=== PATIENT | female | born 1930 | race Caucasian/White ===

== ENCOUNTER 2016-11-16 09:51 | Inpatient (IN) | payer MEDICARE, OTHER ==
--- NOTE | ~2016-11-16 | CO ---
Unit #: [id number] #: [id number] Patient: PAM ALBERT [id number] [facility] [address] [facility]. [place], [place] [address] [id number] I MR#: [id number] NAME: PAM ALBERT ROOM: 333 Age: 85 Sex: F Admission Date: 11/16/2016 : 1930 Attending Physician: Karine Dias M.D. Primary Care Physician: No Primary Care Physician Consultation Date: 11/16/2016 CONSULTATION REPORT REASON FOR CONSULTATION Congestive heart failure. HISTORY OF PRESENT ILLNESS The patient is an 85-year-old female who is followed by Dr. Cortes of [facility]. The patient was recently at [facility] for one week and was treated for bronchitis, flu and diastolic congestive heart failure. At that time, she did have a 2D echocardiogram which did show moderate aortic stenosis with a mean gradient of 24 mmHg. The patient was discharged to [facility] rehab here at [facility]. While at [facility], it was noted that the patient seemed to be coming more short of breath. She was also complaining of productive yellow cough. Family reports that she did have a low grade fever. The patient denies any nausea, vomiting, chills or chest pain. She does endorse shortness of air. In the emergency department, the patient was treated with IV Lasix. She had a chest x-ray done which showed moderately enlarged cardiac silhouette consistent with cardiomegaly or pericardial fluid. The diffuse bilateral interstitial change could be acute or chronic. If acute, the appearance favors edema over pneumonia. Her EKG shows a paced rhythm. Cardiology was consulted for CHF. PAST MEDICAL HISTORY 1. 2D echocardiogram at [facility] shows an ejection fraction of 57%, moderate aortic stenosis with a mean gradient of 24 mmHg. 2. Persistent atrial fibrillation. 3. Status post [employer] permanent pacemaker approximately two years ago. 4. Hypertension. 5. Hyperlipidemia. 6. Chronic diastolic congestive heart failure. 7. Hypothyroidism. 8. Left breast cancer. PAST SURGICAL HISTORY 1. Hernia repair. 2. Permanent pacemaker placement. 3. Left breast cancer with lumpectomy. ALLERGIES No known allergies. Unit #: [id number] #: [id number] Patient: PAM ALBERT HOME MEDICATIONS 1. Lasix 40 mg p.o. daily. 2. Vitamin D 1000 units p.o. daily. 3. Ipratropium albuterol 3 mL inhalation four times daily. 4. Guaifenesin 600 mg p.o. b.i.d. 5. Xarelto 20 mg p.o. daily. 6. Bentyl 20 mg p.o. q.6 hours. 7. Synthroid 0.1 mg p.o. daily. 8. Hydralazine 25 mg p.o. every eight hours. 9. Losartan 50 mg p.o. daily. 10. Prednisone taper. 11. Senna, one tab p.o. daily. 12. Tylenol extra strength 500 mg p.o. every six hours. 13. Xanax 0.25 mg p.o. b.i.d. p.r.n. anxiety. FAMILY HISTORY Medically noncontributory. SOCIAL HISTORY The patient denies tobacco, alcohol or illicit drug abuse. She lives with her son and ambulates with a walker. REVIEW OF SYSTEMS A ten point review of systems has been done and is negative except as indicated in the HPI. PHYSICAL EXAMINATION GENERAL: The patient is awake and alert. VITAL SIGNS: Temperature 98, heart rate 64, respirations 27, blood pressure 156/62. She is oxygenating 94% on 2 L nasal cannula. HEENT: Head is atraumatic, normocephalic. Pupils equal, round and reactive. Extraocular movements are intact. No discharge from ears or nose. NECK: Supple. Trachea is midline. Positive carotid upstrokes. CHEST: Lungs diminished with crackles in the bases. CARDIOVASCULAR: S1, S2. She has a 3/6 systolic murmur. ABDOMEN: Soft, nontender, nondistended. Bowel sounds are positive in all four quadrants. SKIN: Appears to be warm, dry and intact. EXTREMITIES: No clubbing or cyanosis. She does have edema. NEUROLOGIC: She is alert and oriented x3. She is pleasant and conversant with no focal defects. DIAGNOSTIC STUDIES IMAGING: Chest x-ray shows findings consistent with cardiomegaly and edema. LABORATORY: BNP 239, sodium 133, potassium 3.6, chloride 88, CO2 34, BUN 30, creatinine 0.7, glucose 129, white blood cells 27.8, hemoglobin 13.1, hematocrit 41.1, platelets 477. ASSESSMENT 1. Acute on chronic diastolic congestive heart failure with an left ventricular ejection fraction of 57%. 2. Moderate to severe aortic stenosis with a mean gradient of 24 mmHg. 3. Persistent atrial fibrillation, status post permanent pacemaker on anticoagulation. Unit #: [id number] #: [id number] Patient: PAM ALBERT 4. Hypertension. 5. Acute hypoxic respiratory failure. 6. Recent flu and bronchitis. 7. Deconditioning. 8. Leukocytosis. 9. Possible infectious versus steroids. PLAN Will stop the patient's Lasix and give her Bumex 1 mg IV every six hours. Will ask the nurses to do strict I's and O's with a 1800 mL fluid restriction. Will ask nurses to do daily weights on the patient. Will do a bedside swallow evaluation to rule out aspiration. Will check a urinalysis with culture and sensitivity. Will check a CBC, BMP, mag, TSH, lipid panel in the morning. Will check cardiac enzymes and troponin q.6 hours x3 and will check an EKG in the a.m. I will ask Dr. Moran to evaluate the patient to see if she is a possible TAVR candidate. Dictated by... Neva Cox A.P.R.N. for Froilan Moran M.D. AM/haley TD: 11/17/2016 10:20 JOB #: [id number] CONSULTATION REPORT Page 1 of 1 X Neva Cox TOOL GRINDING MACHINE OPERATOR X CONSULTATION REPORT
--- NOTE | ~2016-11-16 | CT16 ---
[facility] A Service of [facility] RADIOLOGY TEXT RESULTS PATIENT: PAM ALBERT LOCATION: [facility] 333-01 : 29 UNIT #: [id number] AGE: [address]: Karien Dias MD SEX: F ORDER DR: [id number] [facility] [address]. [place], [place] [address] [id number] I MR#: [id number] Acc #: [id number] NAME: PAM ALBERT : 1930 SEX: F STUDY DATE/TIME: 11/17/2016 15:28 UNIT: A PCU ROOM: 333 STUDY DESCRIPTION: CT Angio Chest for PE Attending Physician: Karine iDas M.D. Ordering Physician: Froilan Moran M.D. Primary Care Physician: No Primary Care Physician MEDICAL IMAGING REPORT This report is preliminary unless electronic signature is present EXAM Chest CT PE protocol with contrast 11/17/2016 INDICATIONS 85-year-old female with shortness of air and dyspnea 2 days acute edema. History of congestive heart failure. Aortic stenosis, atrial fibrillation, history of breast cancer. TECHNIQUE Contrast enhanced CT scan of the chest PE protocol was performed with 3-D reformats. This CT exam was performed with one or more of the following radiation dose reduction techniques: automatic exposure control, adjustment of mA and/or kV according to patient size, and iterative reconstruction. COMPARISON STUDIES There are no comparisons. FINDINGS CT CHEST: IV bolus adequate. There is significant motion degradation decreasing sensitivity of the study for detection of pulmonary emboli. Aorta demonstrates moderately advanced atherosclerotic change. The thoracic aorta is ectatic. No distinct aneurysm or dissection. There is no evidence of acute pulmonary embolus in the central pulmonary arterial tree. Portions of the distal first and proximal second-order branches particularly in the upper lobes are not well visualized or assessed due to motion degradation and the presence or absence of small pulmonary emboli cannot be ascertained. Included thyroid unremarkable. There are mildly prominent superior mediastinal lymph nodes present likely reactive but should be correlated clinically. Index node in the right paratracheal station measures 9 mm [facility] A Service of [facility] RADIOLOGY TEXT RESULTS PATIENT: PAM ALBERT LOCATION: [facility] 333-01 : 29 UNIT #: [id number] AGE: [address]: Karine Dias MD SEX: F ORDER DR: rich lynn. Similar sized nodes are also present at the remainder of the anterior mediastinum and extend into the middle mediastinum. There is no axillary adenopathy. No pericardial effusion. The heart is enlarged. Included upper abdomen demonstrates no acute finding. There is mild lobulation of the liver margins suggestive of mild cirrhotic change. Correlate with laboratory data. The lungs are emphysematous. There is dense pneumonia in the lower lobes right greater than left. There are patchy tree-in-bud infiltrates in the lungs bilaterally with an upper lobe predominance on the right, but there is also less pronounced involvement of the right middle lobe and lingula. There are noncalcified parenchymal nodules. Index nodule in the upper lobe on the right measures about 6 mm. Second index nodule in the upper lobe on the right measures about 7 mm. Other similar sized nodules are present in the right lung. These are probably inflammatory or infectious but imaging followup to resolution after appropriate therapy is recommended. There is no pneumothorax. There are background changes of subpleural scarring and fibrosis. Osseous structures demonstrate thoracic kyphosis and spondylosis. No suspicious bone lesion. IMPRESSION 1. No evidence of acute pulmonary embolus in the central pulmonary dural tree. 2. No aortic aneurysm or dissection. 3. Cardiomegaly and atherosclerotic change of the aorta with aortic ectasia but no distinct aneurysm. 4. Probable reactive lymph nodes in the mediastinum measuring a centimeter or less. This should be correlated clinically. 5. There is dense pneumonia in the lower lobes bilaterally right greater than left. Additional tree-in-bud infiltrates and probable inflammatory or infectious nodules are present bilaterally with a mid and upper lung zone distribution also most characteristic of inflammatory or infectious process overall and multifocal pneumonia. There is no significant effusion. Imaging followup to resolution is recommended after appropriate therapy as described above. 6. Included upper abdomen demonstrates no acute finding. Morphology of the liver suggests early stigmata of cirrhosis. Dictated by... Malcolm Almonte M.D. THIS IS AN ELECTRONICALLY VERIFIED REPORT Malcolm Almonte M.D. at 11/18/2016 10:31 PM Nadeem TD: 11/17/2016 17:37 JOB #: [id number] MEDICAL IMAGING REPORT [facility]. [facility] A Service of [facility] RADIOLOGY TEXT RESULTS PATIENT: PAM ALBERT LOCATION: [facility] 333-01 : 29 UNIT #: [id number] AGE: [address]: Karine Dias MD SEX: F ORDER DR: Page 1 of 1 COPY
--- NOTE | ~2016-11-16 | EKG ---
PATIENT: PAM ALBERT UNIT #: [id number] Ventricular Rate: 60 BPM Atrial Rate: 69 BPM QRS Duration: 178 ms Q-T Interval: 492 ms QTC Calculation(Bezet): 492 ms Calculated R Wadley: -90 degrees Calculated T Wadley: 84 degrees Diagnosis Line: Sinus rhythm with complete heart block and Diagnosis Line: Ventricular-paced rhythm Diagnosis Line: Abnormal ECG Diagnosis Line: No previous ECGs available Diagnosis Line: Confirmed by TASHI BEAL MD ([id number]) on 11/17/2016 Diagnosis Line: 9:18:50 AM INTERPRETING MD: LIAN PRYOR
--- NOTE | ~2016-11-16 | DS ---
Unit #: [id number] #: [id number] Patient: PAM ALBERT [id number] [place], [place] [address] [id number] I MR#: [id number] NAME: PAM ALBERT ROOM: 333 Age: 85 Sex: F Admission Date: 11/16/2016 : 1930 Discharge Date: 11/21/2016 Attending Physician: Karine Dias M.D. DISCHARGE SUMMARY SUMMARY DATE OF 11/21/2016. PRINCIPAL DIAGNOSES 1. Sepsis secondary to bibasilar aspiration pneumonia. 2. Acute hypoxic respiratory failure secondary to #1. 3. Aortic stenosis, moderate to severe. 4. Leukemoid reaction. 5. Chronic atrial fibrillation. 6. Acute on chronic diastolic congestive heart failure with ejection fraction of 55%. 7. Hypokalemia. 8. History of hypertension. 9. Hypothyroidism. CONSULTANTS Dr. Moran, Cardiology; Dr. Thorpe, Pulmonary. PROCEDURES 1. Two dimensional echocardiogram on 11/16/2016 with ejection fraction of 55% to 60%, grade 2 diastolic dysfunction noted, reduced right ventricular function. Aortic valve area of 0.86 cm2 with maximum gradient 45 mmHg, mean gradient 21, moderate tricuspid regurgitation. 2. CT angiogram of the chest on 11/17/2016, which was negative for pulmonary embolism, cardiomegaly, and atherosclerotic change of the aorta noted, dense pneumonia in lower lobes bilaterally right greater than left, tree-in-bud infiltrates, inflammatory infectious nodules bilaterally. Morphology of liver suggestive cirrhosis. CLINICAL HISTORY AND HOSPITAL COURSE Ms. Albert was a very nice 85-year-old female, sent from rehab due to increasing shortness of breath. Please refer to H and P for further details. Chest x-ray in the emergency department revealed questionable pulmonary edema versus pneumonia. The patient has known moderate to severe aortic stenosis. She was subsequently admitted. In regard to the patient's aortic stenosis, Dr. Moran was consulted. The patient was placed on aggressive diuresis and 2-dimensional echocardiogram was done and results as noted. There was initially discussion about transfer to [facility] for transcatheter aortic valve replacement, but ultimately this was not done given findings of significant pneumonia. Unit #: [id number] #: [id number] Patient: PAM ALBERT Diuresis was held. Dr. Thorpe was consulted given the patient's respiratory failure. Unfortunately, she continued to have progressive hypoxia and required BiPAP therapy. CT scan of the chest was done, revealing significant pneumonia. Interestingly enough, the patient's procalcitonin was significantly low at 0.05. She had been placed on antibiotics for presumed healthcare associated pneumonia, but this appeared to be more aspiration. Swallow evaluation done the prior to the CT scan did confirm aspiration. Goals of care were discussed with the patient namely PEG versus comfort measures. The patient opted to be comfort measures. She was kept comfortable and subsequently passed on 11/21/2016 at 11:31 in the morning. Dictated by... Karine Dias M.D. JAYSHREE/maribel TD: 11/22/2016 01:30 JOB #: [id number] DISCHARGE SUMMARY Page 1 of 1 X Karine Dias MD X DISCHARGE SUMMARY
--- NOTE | ~2016-11-16 | CR72 ---
[facility] A Service of [facility] RADIOLOGY TEXT RESULTS PATIENT: PAM ALBERT LOCATION: [facility] 333-01 : 29 UNIT #: [id number] AGE: [address]: Karine Dias MD SEX: F ORDER DR: [id number] [facility] [address] [place], [place] [address] [id number] E MR#: [id number] Acc #: [id number] NAME: PAM ALBERT : 1930 SEX: F STUDY DATE/TIME: 11/16/2016 09:33 UNIT: [facility] ROOM: STUDY DESCRIPTION: CR Chest Single View Portable Attending Physician: Geovanni Masters M.D. Ordering Physician: Geovanni Masters M.D. Primary Care Physician: No Primary Care Physician MEDICAL IMAGING REPORT This report is preliminary unless electronic signature is present EXAM Chest portable 11/16/2016 09:33 hours HISTORY An 86-year-old woman with shortness of air today, cough. History of atrial fibrillation and bronchitis with flu. COMPARISON None. FINDINGS Upright portable chest film demonstrates moderate enlargement of the cardiac silhouette consistent with cardiomegaly and/or pericardial fluid. There is a left subclavian single lead pacer with tip over the right ventricular apex. There is pulmonary venous distension and bilateral interstitial change diffusely in both lungs. No effusions seen. IMPRESSION There are no prior films for comparison. There is a moderately enlarged cardiac silhouette consistent with cardiomegaly or pericardial fluid. There is a single lead pacer device with tip over the right ventricular apex. There is diffuse bilateral interstitial change which could be acute or chronic. If acute, the appearance favors edema over pneumonia. There is no definite effusion. Dictated by... Patti Adan M.D. THIS IS AN ELECTRONICALLY VERIFIED REPORT Patti Adan M.D. at 11/17/2016 9:21 AM [facility] A Service of [facility] RADIOLOGY TEXT RESULTS PATIENT: PAM ALBERT LOCATION: [facility] 333-01 : 29 UNIT #: [id number] AGE: [address]: Karine Dias MD SEX: F ORDER DR: PAT/bridger TD: 11/16/2016 14:57 JOB #: [id number] MEDICAL IMAGING REPORT Page 1 of 1 COPY
--- NOTE | ~2016-11-16 | CO ---
Unit #: [id number] #: [id number] Patient: PAM ALBERT [id number] [facility] [address]. [place], [place] [address] [id number] I MR#: [id number] NAME: PAM ALBERT ROOM: 333 Age: 85 Sex: F Admission Date: 11/16/2016 : 1930 Attending Physician: Karine Dias M.D. Primary Care Physician: No Primary Care Physician Requesting Physician: Froilan Moran M.D. CONSULTATION REPORT REASON FOR CONSULTATION Respiratory failure and possible sleep apnea. HISTORY OF PRESENT ILLNESS Ms. Albert is an 85-year-old female recently discharged from [facility] admitted there 11/06/2016, discharged 11/12/2016, and sent to [facility]. She was at [facility] and apparently a RAPID was called and, because of that, she was sent possibly through the ER and then admitted to third floor of [facility]. I saw her in the shabazz actually when she was waiting for a PE protocol that had been ordered by another physician and she complains of some increased shortness of air, did not give me the idea that she was tiring out but she really did not know how long she could hold up. She did note some fever and chills previously, not necessarily now. She never smoked. She denies any history of ongoing lung disease such as asthma or emphysema. She was at [facility] and had positive influenza A. However, they did a CAT scan there that was reported as negative, although I do not know if I actually have a copy of that. The report of negative basically comes from the discharge summary. She does admit to some leg swelling. She does have a history of aortic stenosis which has been termed as moderate previously. It is notable that when she left I think they had planned on a tapering dose of prednisone but I think she is off that now. PAST MEDICAL HISTORY Otherwise significant for her aortic stenosis by echo that revealed LV function normal at 57%. She had right ventricular cavity moderately dilated, left atrial cavity severely dilated, right atrial cavity severely dilated, moderate aortic stenosis, peak gradient of 44, mean 24, mild to moderate mitral valve regurgitation, calculated RVST was 57. That is consistent with some pulmonary hypertension. Other past medical history significant for atrial fibrillation, history of breast cancer and status post left lumpectomy, chronic leg edema, diverticulitis, hypertension, hypothyroidism, right hip pain. PAST SURGICAL HISTORY Pacemaker implant, hernia repair, cholecystectomy, tubal ligation, left lumpectomy. SOCIAL HISTORY She never smoked. FAMILY HISTORY According to the patient is negative for lung disease. Unit #: [id number] #: [id number] Patient: PAM ALBERT ALLERGIES No known drug allergies. MEDICATIONS ON ADMISSION 1. Bentyl 20 mg p.o. q.6. 2. Synthroid 0.1 mg daily. 3. Hydralazine 25 mg p.o. q.8. 4. Losartan 50 mg p.o. daily. 5. Prednisone on a tapering dose. 6. Senna daily. 7. Tylenol extra strength. 8. Xanax 0.25 mg b.i.d. 9. Lasix 40 mg p.o. daily. 10. Vitamin D3 1,000 units daily. 11. DuoNeb q.i.d. 12. Guaifenesin 600 mg b.i.d. 13. Xarelto 20 mg p.o. daily. SYSTEM REVIEW She is denying nausea, vomiting, diarrhea. She did have leg swelling. She does admit to choking on food. All other systems are negative except as mentioned. PHYSICAL EXAMINATION GENERAL APPEARANCE: She presents as an older female, currently in no acute distress. VITAL SIGNS: Temperature 98.1. Pulse 62. Respirations 23. Blood pressure 153/59. Saturation is 99%. Now, when that was taking, she may have been on BiPAP but, when I saw her, she was on four liters nasal cannula. NECK: Without adenopathy. LUNGS: Her breathing is mildly labored. She has diffuse bilateral inspiratory and expiratory wheezes and rhonchi. HEART: Irregular. ABDOMEN: Soft and bowel sounds are present. EXTREMITIES: Trace to 1+ edema. NEUROLOGIC: She is awake and alert. DIAGNOSTIC STUDIES LABORATORY: Her WBC count here was 30,000, hemoglobin and hematocrit 12.5 and 39, platelets 480,000. Her serum chemistry is significant for a BUN of 38 and a creatinine of 0.7, bicarb 32, albumin 3. Lactic done yesterday was 1.2. I asked for a blood gas last night on BiPAP 08/02. pH was 7.36, pCO2 63, pO2 134. That was repeated this morning and her pH was 7.42, pCO2 down to 56, pO2 127. IMAGING: Her chest x-ray to my exam revealed bilateral diffuse infiltrates. She was sent down for PE protocol CAT scan and they told me they were uploading images but I have not found them yet. IMPRESSION 1. Acute on chronic hypoxemic and hypercapnic respiratory failure. 2. Diffuse bilateral infiltrates. This is congestive heart failure versus pneumonia or very possibly both. 3. Recent flu A infection. I cannot tell whether she received Tamiflu at [facility] but I assume that she did. 4. Aortic stenosis at least moderate. 5. Pulmonary hypertension probably (1) because of left-sided Unit #: [id number] #: [id number] Patient: ROOSEVELT,PAM heart disease. PLAN She has got an elevated WBC count and bilateral diffuse infiltrates but her BNP, despite those bilateral diffuse infiltrates, is really only 239. Frankly, I do not think that is impressive. I would have concern for bilateral pneumonia or pneumonitis. It is certainly possible that she has influenza pneumonitis but that was a while ago and she left the hospital on the . I think we are obligated to treat this at least initially as a pneumonia because I would expect that if this were all because of her aortic stenosis causing a pulmonary edema, that her BNP should be higher, especially because of some pulmonary hypertension which, all by itself, can elevate the BNP. Therefore, I think we have to treat at least a little component of a noncardiogenic edema. I will go ahead and start cefepime. We could give a dose of vancomycin but I have a little concern because of the (2) and because of keeping her on the dry side that we could hurt her kidneys. I would like a procalcitonin level. I think her outlook is guarded. Thank you very much for allowing me to participate in the care of this patient. Dictated by... Yimi Thorpe M.D. Johnie TD: 11/18/2016 07:10 JOB #: [id number] CONSULTATION REPORT Page 1 of 1 X Yimi Thorpe MD CONSULTATION REPORT
--- NOTE | ~2016-11-16 | EKG ---
PATIENT: PAM ALBERT UNIT #: [id number] Ventricular Rate: 60 BPM Atrial Rate: 58 BPM QRS Duration: 174 ms Q-T Interval: 484 ms QTC Calculation(Bezet): 484 ms Calculated R Manti: -86 degrees Calculated T Manti: 94 degrees Diagnosis Line: Wide QRS rhythm Diagnosis Line: Left axis deviation Diagnosis Line: Right bundle branch block with repolarization Diagnosis Line: abnormality Diagnosis Line: Left ventricular hypertrophy with repolarization Diagnosis Line: abnormality Diagnosis Line: Inferior infarct , age undetermined Diagnosis Line: Anterior infarct , age undetermined Diagnosis Line: Abnormal ECG Diagnosis Line: When compared with ECG of 16-NOV-2016 09:22, Diagnosis Line: (unconfirmed) Diagnosis Line: Wide QRS rhythm has replaced Electronic Diagnosis Line: ventricular pacemaker Diagnosis Line: Confirmed by TASHI BEAL MD ([id number]) on 11/18/2016 Diagnosis Line: 9:34:54 AM INTERPRETING MD: LIAN PRYOR
--- NOTE | ~2016-11-16 | A ---
[facility] Nutrition Therapy DATE: 11/18/16 Patient: PAM ALBERT Physician: BROWN Address: [address] Room/Bed: [address] [place] [address], Zip: [place] [address] Admit Date: 11/16/16 Date of : 29 Height: 5 5 Weight: 143 65 NUTRITIONAL ASSESSMENT: REASON: CHAPERON request 85 y/o female admitted for acute edema, SOB PMH: CHF, atrial fibrillation, aortic stenosis, breast cancer, chronic edema, diverticulitis, HTN, hypothyroidism, EF of 57% Anthropometrics: Ht: 5'5" Wt: Labs: K+ 3.3, Cl- 98, Gluc 165, BUN 42 Meds: Solu-medrol, NaCl, Vitamin D I/O & Bowel function: 1200/1801, last BM 11/16 Skin Integrity: bruise (arms), red (buttock) Edema: BLE 2+ Assessment: Chart reviewed, events noted. CHAPERON requested that RD see the pt due to poor PO intake. Per CHAPERON note in chart from today, the pt's respiratory status is declining and CHAPERON recommends that the pt remain NPO. MD has since spoken with the pt's son and the pt regarding PEG vs. eating with comfort measures. Per MD note, the pt decided on eating with comfort measures. Pt has been ordered a regular diet for gratification and BiPAP has been discontinued. Nutrition intervention is not appropiate at this time. Please consult RD for any further nutritional needs. Consult RD if needed. Respectfully, Astrid Morrow, NANCI, LD [employer] [facility] [employer] cc: client file
--- NOTE | ~2016-11-16 | HP ---
Unit #: [id number] #: [id number] Patient: PAM ALBERT [id number] [place], [place] [address] [id number] MR#: [id number] NAME: PAM ALBERT ROOM: 333 Age: 85 Sex: F Admission Date: 11/16/2016 : 1930 Attending Physician: Nikki Ferrera M.D. HISTORY AND PHYSICAL CHIEF COMPLAINT Shortness of breath. HISTORY OF PRESENT ILLNESS The patient is an 85-year-old female brought to the emergency room after the MET team rapid response at [facility] on the second floor with respiratory distress. The patient was discharged from [facility] on November 12 for cardiac rehab following a viral bronchitis, chronic diastolic CHF, and moderate aortic stenosis. The patient was on the floor and was having shortness of breath gradually worsening to the point that they had to call the rapid response. The patient was found to be on two liters and her breathing was up to 92%. The patient is feeling uncomfortable. She denies any chest pain. The patient has a history of atrial fibrillation and anticoagulated with Xarelto. The patient had an echocardiogram at [facility] on November 07 that showed an EF of 57%, moderately dilated ventricles, and moderate aortic stenosis. There had been some discrepancy on aortic stenosis between the gradients and a calculated valve area with the valve area suggesting more severe stenosis. However, her mean gradient was 24 mmHg on echocardiogram consistent with a prior (1) moderate range. The patient was discharged to [facility] rehab on a tapering dose of steroids and oral diuretics. The patient was found to be in acute pulmonary edema in the emergency room and is being admitted for the above reasons. PAST MEDICAL HISTORY 1. Atrial fibrillation. 2. Aortic stenosis. 3. Breast cancer, status post lumpectomy. 4. Chronic edema. 5. Diverticulitis of the colon. 6. Hypertension. 7. Hypothyroidism. PAST SURGICAL HISTORY 1. Pacemaker implantation. 2. Hernia repair. 3. Cholecystectomy. 4. Tubal ligation. SOCIAL HISTORY She is . No history of smoking cigarettes, drinking alcohol, or any illicit drug abuse. FAMILY HISTORY Unit #: [id number] #: [id number] Patient: PAM ALBERT Mother with diabetes and father with asthma. HOME MEDICATIONS 1. Bentyl. 2. Synthroid. 3. Hydralazine. 4. Losartan. 5. Prednisone tapering dose. 6. Furosemide. 7. Vitamin. 8. DuoNebs. 9. Guaifenesin. 10. Xarelto. 11. Senna. 12. Tylenol. 13. Alprazolam. ALLERGIES No known drug allergies. REVIEW OF SYSTEMS A 14-point review of systems was performed and only pertinent positive findings are described above. The remaining are negative. PHYSICAL EXAMINATION GENERAL: Patient is lying in bed not in acute distress. VITAL SIGNS: Temperature 97.8, pulse 60, respiratory rate 20, blood pressure 172/52, and saturating 95% on five liters of nasal cannula. HEENT: Head atraumatic, normocephalic. Pupils equal, round, and reactive to light and accommodation. Extraocular movements are intact. Dry mucous membranes. NECK: Supple. No JVD. LUNGS: Decreased air entry at the bases. Positive for rales. HEART: Irregular rate and rhythm. Positive for murmur. ABDOMEN: Soft. Positive bowel sounds. No abdominal tenderness. EXTREMITIES: With +1 pedal edema. No cyanosis, no clubbing. NEUROLOGIC: Alert, awake, and oriented. No gross focal motor deficit. DIAGNOSTIC STUDIES LABORATORY: Glucose 129, BUN 30, creatinine 0.7, sodium 133, potassium 3.6, chloride 88, bicarb 34, calcium 9.9, albumin 3, AST 24, ALT 31, and alkaline phosphatase 61. BNP 239. Lactic acid is 1.2. INR is 1.1. Troponin is less than 0.05. WBC 27.8, hemoglobin 13.1, hematocrit 41.1, platelets 477,000, and neutrophils 89.5%. IMAGING: Chest x-ray shows cardiomegaly with pulmonary edema. CARDIOLOGY: EKG shows paced rhythm at a rate of 60 beats per minute. ASSESSMENT 1. Pulmonary edema. 2. Acute on chronic diastolic congestive heart failure. 3. Respiratory distress. 4. Moderate aortic stenosis. PLAN Admit the patient to inpatient with telemetry. Continue with IV diuretics with Lasix 40 mg IV b.i.d. Patient will have strict I/Os with a Bae Unit #: [id number] #: [id number] Patient: PAM ALBERT catheter. Repeat the echocardiogram and obtain the old records. Will have Cardiology evaluation for the CHF, pulmonary edema, and aortic stenosis. Repeat the labs again in the morning. Further recommendations will follow. Dictated by Veronique Coronado TD: 11/16/2016 19:07 JOB #: [id number] HISTORY AND PHYSICAL Page 1 of 1 X X HISTORY AND PHYSICAL
[2016-11-16 09:57] LABS: POC - CKMB 3.2 ng/mL (0.0-7.9); POC - TROPONIN <0.05 ng/mL (<=0.05)
[2016-11-16 10:04] LABS: BASOPHIL# 0.1 X10e3 (0-0.3); BASOPHIL% 0.4 % (0-2.5); DIFF IND YES; HEMATOCRIT 41.1 % (35.0-45.0); HEMOGLOBIN 13.1 gm/dL (12.0-16.0); LYMPHOCYTE# 0.3 X10e3 (1.0-3.5); LYMPHOCYTE% 0.9 % (17.0-45.0); MEAN CELL VOLUME 87.1 FL (83-96); MEAN CORPUSCULAR HEMOGLOBIN 27.8 PG (28-34); MEAN CORPUSCULAR HGB CONC 31.9 g/dL (30-36); MONOCYTE# 2.6 X10e3 (0-1.0); MONOCYTE% 9.2 % (3.0-12.0); NEUTROPHIL# 24.9 X10e3 (1.5-7.1); NEUTROPHIL% 89.5 % (40-75); PLATELET COUNT 477 X10e3 (140-420); RED BLOOD COUNT 4.72 X10e (3.90-5.30); RED CELL DISTRIBUTION WIDTH 13.9 % (11.0-15.5); WHITE BLOOD COUNT 27.8 X10e3 (4.0-10.5)
[2016-11-16 10:08] LABS: INR 1.1; PARTIAL THROMBOPLASTIN TIME 27.3 SECONDS (23.5-31.3); PROTHROMBIN TIME (PATIENT) 11.7 SECONDS (9.6-11.5)
[2016-11-16 10:16] LABS: PLATELET ESTIMATE INCREASED (NORMAL)
[2016-11-16 10:17] LABS: RBC NORMAL YES
[2016-11-16 10:30] LABS: ALKALINE PHOSPHATASE 61 U/L (32-92); ALT (SGPT) 31 U/L (10-40); AST (SGOT) 24 U/L (10-42); BILIRUBIN, DIRECT 0.6 mg/dL (0.0-0.2); BILIRUBIN,INDIRECT 1.1 mg/dL (0.0-0.9); BILIRUBIN,TOTAL 1.7 mg/dL (0.2-2.0); BLOOD UREA NITROGEN 30 mg/dL (9-23); BUN/CREATININE RATIO 42.85; CALCIUM SERUM 9.9 mg/dL (8.4-10.2); CARBON DIOXIDE 34 mmol/L (22-31); CHLORIDE 88 mmol/L (100-111); CREATININE SERUM 0.7 mg/dL (0.6-1.4); GLOM FILT RATE Estimated ABOVE60 mL/min (>60); GLUCOSE FASTING 129 mg/dL (70-110); POTASSIUM 3.6 mmol/L (3.5-5.1); PROTEIN TOTAL SERUM 6.9 g/dL (6.0-8.3); SODIUM 133 mmol/L (135-145)
[2016-11-16 11:26] LABS: POC - CKMB 2.7 ng/mL (0.0-7.9); POC - TROPONIN <0.05 ng/mL (<=0.05)
[2016-11-16] MEDS ORDERED: BENTYL20 MG PO (11:50)
[2016-11-16] MEDS ORDERED: HYDRALAZINE HCL25 MG PO (11:51)
[2016-11-16] MEDS ORDERED: SYNTHROID0.1 MG PO (11:51)
[2016-11-16] MEDS ORDERED: LOSARTAN POTASS50 MG PO (11:52)
[2016-11-16] MEDS ORDERED: PREDNISONE10 MG PO (11:54)
[2016-11-16] MEDS ORDERED: FUROSEMIDE40 MG PO (11:54)
[2016-11-16] MEDS ORDERED: IPRAT-ALBUT 0.5-3 ML INH (11:55)
[2016-11-16] MEDS ORDERED: VITAMIN D31000 UNI2 PO (11:55)
[2016-11-16] MEDS ORDERED: GUAIFENESIN600 M1 PO (11:56)
[2016-11-16] MEDS ORDERED: XARELTO20 MG PO (11:57)
[2016-11-16] MEDS ORDERED: TYLENOL EXTRA500 M1 PO (11:57)
[2016-11-16] MEDS ORDERED: SENNA S TABLET1 TAB PO (11:57)
[2016-11-16] MEDS ORDERED: ALPRAZOLAM0.25 MG PO (11:58)
[2016-11-16 17:49] LABS: CK TOTAL 17 IU/L (26-140)
[2016-11-16 23:35] LABS: CK TOTAL 19 IU/L (26-140)
[2016-11-17 00:45] LABS: ARTERIAL BLD GAS O2 SATURATION 97.4 % (90.0-100.0); ARTERIAL BLOOD GAS CARBOXY HB 0.7 %sat (0.0-9.0); ARTERIAL BLOOD GAS HCO3 36.4 mmol/L; ARTERIAL BLOOD GAS pH 7.367 (7.350-7.450)
[2016-11-17 00:47] LABS: ARTERIAL BLOOD GAS PCO2 63.4 mmHg (35.0-45.0)
[2016-11-17 00:48] LABS: ARTERIAL BLOOD GAS ALLEN TEST NORMAL; ARTERIAL BLOOD GAS ART SITE RIGHT RADIAL; ARTERIAL DRAW? YES
[2016-11-17 04:53] LABS: HEMATOCRIT 39.1 % (35.0-45.0); HEMOGLOBIN 12.5 gm/dL (12.0-16.0); MEAN CELL VOLUME 87.9 FL (83-96); MEAN CORPUSCULAR HEMOGLOBIN 28.1 PG (28-34); MEAN PLATELET VOLUME 7.6 FL (6.5-11.5); RED BLOOD COUNT 4.45 X10e (3.90-5.30); RED CELL DISTRIBUTION WIDTH 14.2 % (11.0-15.5)
[2016-11-17 05:33] LABS: CK TOTAL 14 IU/L (26-140)
[2016-11-17 06:06] LABS: BLOOD UREA NITROGEN 38 mg/dL (9-23); BUN/CREATININE RATIO 54.28; CALCIUM SERUM 9.9 mg/dL (8.4-10.2); CARBON DIOXIDE 32 mmol/L (22-31); CHLORIDE 92 mmol/L (100-111); CHOLESTEROL 138 mg/dL (0-200); CREATININE SERUM 0.7 mg/dL (0.6-1.4); GLOM FILT RATE Estimated ABOVE60 mL/min (>60); GLUCOSE FASTING 114 mg/dL (70-110); HDL CHOLESTEROL 40 mg/dL (35-95); LDL CHOLESTEROL 78 mg/dL (-130); LDL/HDL RATIO 2 RATIO (0-4); POTASSIUM 3.7 mmol/L (3.5-5.1); SODIUM 139 mmol/L (135-145); TRIGLYCERIDES 100 mg/dL (10-160)
[2016-11-17 08:35] LABS: ARTERIAL BLD GAS O2 SATURATION 98.4 % (90.0-100.0); ARTERIAL BLOOD GAS CARBOXY HB 0.3 %sat (0.0-9.0); ARTERIAL BLOOD GAS HCO3 36.7 mmol/L; ARTERIAL BLOOD GAS MET HB 0.2 %sat (0.0-2.0); ARTERIAL BLOOD GAS pH 7.423 (7.350-7.450)
[2016-11-17 08:37] LABS: ARTERIAL BLOOD GAS ALLEN TEST NORMAL; ARTERIAL BLOOD GAS ART SITE RIGHT RADIAL; ARTERIAL BLOOD GAS PCO2 56.3 mmHg (35.0-45.0); ARTERIAL DRAW? YES
[2016-11-17 18:55] LABS: BUN/CREATININE RATIO 54.28; CALCIUM SERUM 9.1 mg/dL (8.4-10.2); CREATININE SERUM 0.7 mg/dL (0.6-1.4); GLOM FILT RATE Estimated 78.5 mL/min (>60); MAGNESIUM 1.9 mg/dL (1.6-3.0); POTASSIUM 3.2 mmol/L (3.5-5.1)
[2016-11-18 08:13] LABS: HEMATOCRIT 38.5 % (35.0-45.0); HEMOGLOBIN 12.1 gm/dL (12.0-16.0); MEAN CELL VOLUME 87.5 FL (83-96); MEAN CORPUSCULAR HEMOGLOBIN 27.5 PG (28-34); MEAN CORPUSCULAR HGB CONC 31.4 g/dL (30-36); MEAN PLATELET VOLUME 7.8 FL (6.5-11.5); RED BLOOD COUNT 4.4 X10e (3.90-5.30); RED CELL DISTRIBUTION WIDTH 14.3 % (11.0-15.5)
[2016-11-18 08:46] LABS: BUN/CREATININE RATIO 52.5; CALCIUM SERUM 9.7 mg/dL (8.4-10.2); CREATININE SERUM 0.8 mg/dL (0.6-1.4); GLOM FILT RATE Estimated 66.8 mL/min (>60); MAGNESIUM 2.1 mg/dL (1.6-3.0); POTASSIUM 3.3 mmol/L (3.5-5.1)
== END 2016-11-21 11:31 | disposition expired | DRG 871 ==
LOC: CED 09:51 → CEDOF 14:11 → C3A PCU 18:38
PROVIDERS: Emergency Medicine; Internal Medicine; Internal Medicine Pulmonary Disease
PROC: B24BYZZ Ultrasonography of Heart with Aorta using Other Contrast (ICD-10-PCS; principal; 2016-11-16)
PROC: B32TYZZ Computerized Tomography (CT Scan) of Left Pulmonary Artery using Other Contrast (ICD-10-PCS; 2016-11-17)
PROC: B32SYZZ Computerized Tomography (CT Scan) of Right Pulmonary Artery using Other Contrast (ICD-10-PCS; 2016-11-17)
DX: A41.9 Sepsis, unspecified organism (principal); J96.22 Acute and chronic respiratory failure with hypercapnia; J96.21 Acute and chronic respiratory failure with hypoxia; J69.0 Pneumonitis due to inhalation of food and vomit; I50.33 Acute on chronic diastolic (congestive) heart failure; I48.1 Persistent atrial fibrillation; I11.0 Hypertensive heart disease with heart failure; I35.0 Nonrheumatic aortic (valve) stenosis; Z85.3 Personal history of malignant neoplasm of breast; E03.9 Hypothyroidism, unspecified; Z95.0 Presence of cardiac pacemaker; Z90.49 Acquired absence of other specified parts of digestive tract; Z98.51 Tubal ligation status; E78.5 Hyperlipidemia, unspecified; I27.2 Other secondary pulmonary hypertension; Z66 Do not resuscitate; Z51.5 Encounter for palliative care; E87.6 Hypokalemia; D72.823 Leukemoid reaction
CPT/HCPCS: 36600; 71010; 71275; 80048; 80061; 80076; 82308; 82550; 82553; 82803; 83605; 83735; 83880; 84443; 84484; 85025; 85027; 85610; 85730; 87040; 87086; 87088; 87186; 87899; 92610; 93005; 93306; 94640; 94660; 94760; 96374; 99291; G8996-GN; G8997-GN; J0692; J1940; J2060; J2270; J2930; J3370; Q9967